=== PATIENT | female | born 1950 | race Caucasian/White ===

== ENCOUNTER 2018-12-08 14:09 | Inpatient (IN) | payer OTHER | END 2018-12-14 12:45 | disposition home or self-care (01) | LOC: ER 14:09 → ED HOLD 16:49 → SUR 3N 21:00 | DX: A41.9 Sepsis, unspecified organism (principal); J18.1 Lobar pneumonia, unspecified organism; J96.01 Acute respiratory failure with hypoxia; E87.6 Hypokalemia ==